=== PATIENT | female | born 1975 | race Caucasian/White ===

== ENCOUNTER 2021-08-04 09:30 | Emergency (ER) | payer MEDICAID ==
[~2021-08-04] VITALS: Ht 154.9 cm; Wt 77.1 kg
[2021-08-04 09:30] VITALS: BP_SYST 145
--- NOTE | 2021-08-04 09:30 | NUR ---
Pt to bed 4 for evaluation. Pt gowned and attached to ekg monitor tech.
--- NOTE | 2021-08-04 09:31 | NUR ---
Pt reports allergic reaction to tuna that she ate 2 days ago. Pt reports that symptoms of allergy began Monday morning. No angioedema or SOB. Pt is no respirtory distress. Pt presents with diffuse welts to entire body. Pt took decadron and benadrl last at 3am today. Pt reports that rash is getting worse. Pt reports burning pain 8/10 on pain scale.
--- NOTE | 2021-08-04 09:32 | NUR ---
Dr. Lilly at bedside to assess.
--- NOTE | 2021-08-04 09:34 | NUR ---
Report given to YUMIKO Dawson who will assume care.
[2021-08-04] MEDS ORDERED: methylPREDNISolone SOD SUCC/PF 62.5 MG/ML VIAL IVP ONE (09:45)
[2021-08-04] MEDS ORDERED: DIPHENHYDRAMINE INJ 50 MG/ML VIAL IVP ONE (09:45)
[2021-08-04] MEDS ORDERED: NACL 0.9% 1,000 ML IV ONE (09:45)
[2021-08-04] MEDS ORDERED: FAMOTIDINE PF 20 MG/2 ML VIAL IVP ONE (09:45)
[2021-08-04] MEDS ORDERED: EPINEPHrine 1 MG/ML AMP IM ONE (09:45)
--- NOTE | 2021-08-04 09:45 | NUR ---
RECEIVED PT IN BED STABLE, NAD, VSS, BREATHING REGULAR, FULL BODY RASH, AWAITING ADDITIONAL ASSESSMENT, AND FURTHER DISPOSITION WITH PLAN OF CARE.
--- NOTE | 2021-08-04 10:25 | NUR ---
ED MD AT BEDSIDE FOR ADDITIONAL ASSESSMENT OF SKIN.
[2021-08-04] MEDS ORDERED: EPINEPHrine 1 MG/ML VIAL IM ONE ×2 (11:15)
[2021-08-04] MEDS ORDERED: EPINEPHrine 1 MG/ML AMP ONE (11:16)
[2021-08-04 12:13] VITALS: BP_SYST 120
[2021-08-04] MEDS ORDERED: BEN50 PO (12:14)
[2021-08-04] MEDS ORDERED: PRED20TA PO (12:15)
--- NOTE | 2021-08-04 12:15 | NUR ---
PT DISCHARGED HOME STABLE, NAD, VSS, RASH RESOLVING, PATIENT MEDS SENT TO PHARMACY AND BENITEZ SENT WITH PT.
[2021-08-04] MEDS ORDERED: FAMO40TA71 PO (12:16)
== END 2021-08-04 12:15 | disposition home or self-care (01) ==
LOC: SED 09:30
DX: L50.9 Urticaria, unspecified (principal); Z79.899 Other long term (current) drug therapy
CPT/HCPCS: 96361; 96372; 96374; 96375; 99291; J0171; J1200; J2930; J3490; J7030